=== PATIENT | male | born 1975 | race Caucasian/White ===

== ENCOUNTER 2019-08-28 10:12 | Emergency (ER) | payer SELFPAY ==
--- NOTE | 2019-08-28 10:24 | EDM.PDOC ---
ED HPI GENERAL MEDICAL PROBLEM - General Chief Complaint: Respiratory Problem Stated Complaint: DRY COUGH Time Seen by Provider: 08/28/19 10:13 Source of Information: Reports: Patient History Limitations: Reports: No Limitations - History of Present Illness INITIAL COMMENTS - FREE TEXT/NARRATIVE: HISTORY AND PHYSICAL: History of present illness: Patient is a 44-year-old male who presents to the emergency room today with complaints of dry nonproductive cough which started yesterday. He states he does have a history of "walking pneumonia" and is concerned he may have this again. Patient denies any fever, chills, headache, change in vision, syncope or near syncope. Denies any chest pain, back pain, or shortness of breath. Denies any abdominal pain, nausea, vomiting, diarrhea, constipation or dysuria. No recent travel and no exposures to anyone who's been ill. Patient has been eating and drinking appropriately. Review of systems: As per history of present illness and below otherwise all systems reviewed and negative. Past medical history: As per history of present illness and as reviewed below otherwise noncontributory. Surgical history: As per history of present illness and as reviewed below otherwise noncontributory. Social history: See social history for further information Family history: As per history of present illness and as reviewed below otherwise noncontributory. Physical exam: General: Developed and well-nourished 44-year-old male. Alert and oriented. Nontoxic-appearing and in no acute distress. HEENT: Atraumatic, normocephalic, pupils equal and reactive bilaterally, negative for conjunctival pallor or scleral icterus, mucous membranes moist, TMs normal bilaterally, throat clear, neck supple, nontender, trachea midline. No drooling or trismus noted. No meningeal signs. No hot potato voice noted. Lungs: Clear to auscultation, breath sounds equal bilaterally, chest nontender. Heart: S1S2, regular rate and rhythm without overt murmur Abdomen: Soft, nondistended, nontender. Negative for masses or hepatosplenomegaly. Negative for costovertebral tenderness. Skin: Intact, warm, dry. No lesions or rashes noted. Extremities: Atraumatic, moves all extremities per self without difficulty or deficits, negative for cords or calf pain. Neurovascular unremarkable. Neuro: Awake, alert, oriented. Cranial nerves II through XII unremarkable. Cerebellum unremarkable. Motor and sensory unremarkable throughout. Exam nonfocal. Notes: With the recent COVID-19 outbreak patient has been screened: patient denies any recent travel to high risk areas or exposure to anyone who recently tested or is begin tested for COVID-19. Patient is at low risk. Patient is afebrile here and besides the dry cough, he doesn't not have any other associated symptoms. CXR shows no acute findings. Supportive care measures were reviewed and discussed. Voices understanding and is agreeable to plan of care. Denies any further questions or concerns at this time. Diagnostics: CXR Therapeutics: None Prescription: Tessalon Impression: Viral URI Plan: 1. Please stop smoking. 2. Take the medication as prescribed and as needed. 3. Follow up with your primary care provider. Return to the ED as needed and as discussed. Definitive disposition and diagnosis as appropriate pending reevaluation and review of above. Duration: Day(s): - Related Data Allergies Allergy/AdvReac Type Severity Reaction Status Date / Time Penicillins Allergy Hives Verified 08/28/19 10:22 Home Meds: Home Meds Benzonatate [Tessalon Perle] 100 mg PO TID PRN #20 capsule 08/28/19 [Rx] ED ROS GENERAL - Review of Systems Review Of Systems: Comprehensive ROS is negative, except as noted in HPI. ED EXAM, GENERAL - Physical Exam Exam: See Below (See dictation) Course - Vital Signs Last Recorded V/S: Last Vital Signs Temp 97.3 F 08/28/19 10:53 Pulse 79 08/28/19 10:53 Resp 18 08/28/19 10:53 BP 147/101 H 08/28/19 10:53 Pulse Ox 99 08/28/19 10:53 Departure - Departure Time of Disposition: 11:02 Disposition: Home, Self-Care 01 Clinical Impression: Viral URI with cough - Discharge Information Prescriptions: Benzonatate [Tessalon Perle] 100 mg PO TID PRN #20 capsule PRN Reason: Cough Instructions: Viral Respiratory Infection, [id number] Referrals: PCP,None [Primary Care Provider] - Forms: ED Department Discharge Additional Instructions: The following information is given to patients seen in the emergency department who are being discharged to home. This information is to outline your options for follow-up care. We provide all patients seen in our emergency department with a follow-up referral. The need for follow-up, as well as the timing and circumstances, are variable depending upon the specifics of your emergency department visit. If you don't have a primary care physician on staff, we will provide you with a referral. We always advise you to contact your personal physician following an emergency department visit to inform them of the circumstance of the visit and for follow-up with them and/or the need for any referrals to a consulting specialist. The emergency department will also refer you to a specialist when appropriate. This referral assures that you have the opportunity for follow-up care with a specialist. All of these measure are taken in an effort to provide you with optimal care, which includes your follow-up. Under all circumstances we always encourage you to contact your private physician who remains a resource for coordinating your care. When calling for follow-up care, please make the office aware that this follow-up is from your recent emergency room visit. If for any reason you are refused follow-up, please contact the [facility] Emergency Department at and asked to speak to the emergency department charge nurse. [facility] [address] [place] [address] [place] [address] 1. Please stop smoking. 2. Chest x-ray is normal. Take the medication as prescribed and as needed. 3. Follow up with your primary care provider. Return to the ED as needed and as discussed. Sepsis Event Note - Focused Exam Vital Signs: Vital Signs Temp Pulse Resp BP Pulse Ox 08/28/19 10:53 97.3 F 79 18 147/101 H 99 08/28/19 10:23 97.4 F 105 H 18 169/97 H Date Exam was Performed: 08/28/19 Time Exam was Performed: 11:04
--- NOTE | 2019-08-28 10:54 | CR ---
Chest: 2 views of the chest were obtained. Comparison: No prior chest x-ray. Heart size and mediastinum are normal. Lungs are clear with no acute parenchymal change. Bony structures are unremarkable. Impression: 1. Nothing acute is appreciated on 2 view chest x-ray. Diagnostic code #1 This report was dictated in MDT
== END 2019-08-28 11:16 | disposition home or self-care (01) ==
LOC: MW.ED 10:12
DX: J06.9 Acute upper respiratory infection, unspecified (principal); Z88.0 Allergy status to penicillin
CPT/HCPCS: 71046; 71046-26; 99283-25